=== PATIENT | female | born 1960 | race Hispanic/Latino ===

== ENCOUNTER 2023-04-15 16:51 | Inpatient (IN) | payer BC ==
[~2023-04-15 16:51] MED LIST: Iopamidol 300 61% 100 ML VIAL FS ONE
[2023-04-15] MEDS ORDERED: Ondansetron PF 4 MG/2 ML Vial ONE ×2 (17:51→19:22)
[2023-04-15 18:14] LABS: #Monocytes 0.7 10x3/uL (0.0-1.1); #Neutrophils 21.1 10x3/uL (1.5-8.4); %Basophils 0.2 % (0.0-2.0); %Lymphocytes 3.9 % (18.0-47.0); %Monocytes 3.2 % (0.0-10.0); Hematocrit 40.9 % (34.9-44.5); Hemoglobin 14.3 g/dL (12.0-15.5); Mean Corpuscular Hemoglobin 30.8 pg (27.0-33.0); Mean Platelet Volume 9.4 fl (7.4-10.4); Platelet Count 316 10x3/uL (150-450); RBC Distribution Width 11.8 % (11.5-14.5); Red Blood Cell (RBC) Count 4.65 10x6/uL (3.90-5.03)
[2023-04-15 18:28] LABS: ALT (SGPT) 14 U/L (8-55); AST (SGOT) 15 U/L (5-34); Albumin 3.7 g/dL (3.4-4.8); Alkaline Phosphatase 84 U/L (40-110); Anion Gap 18 mmol/L (10-20); BUN (Urea Nitrogen) 14 mg/dL (9.8-20.1); Bilirubin, Total 0.4 mg/dL (0.2-1.2); Calc. Creatinine Clearance 0 mL/min (70-130); Carbon Dioxide 21 mmol/L (23-31); Chloride 104 mmol/L (98-107); Estimated GFR 96; Globulin 2.7 g/dL (2.4-3.5); Glucose 107 mg/dL (80-115); Lipase 29 U/L (8-78); Potassium 3.3 mmol/L (3.5-5.1); Protein, Total 6.4 g/dL (5.8-8.1); Sodium 140 mmol/L (136-145)
[2023-04-15 18:29] LABS: SARS-CoV-2 NAA Rapid Test Not Detected (NotDetected)
[2023-04-15 18:30] LABS: Troponin I Less than 0.010 ng/mL (< 0.028)
[2023-04-15 19:20] LABS: Bilirubin 1+ (Negative); Blood, Urine Negative (Negative); Clarity Clear (Clear); Glucose, Urine (Dipstick) Normal (Negative); Ketone, Urine 150 mg/dL (Negative); Leukocyte 25 (Negative); Nitrite Negative (Negative); Protein, Urine (Dipstick) 100 mg/dl (Neg-Trace); Specific Gravity, Urine 1.015 (1.005-1.030)
[2023-04-15] MEDS ORDERED: cefTRIAXone (ROCEPHIN) 1 GM VIAL ONE (19:22)
[2023-04-15] MEDS ORDERED: Azithromycin 500 MG VIAL ONE (19:22)
[2023-04-15] MEDS ORDERED: fentaNYL 50 mcg/mL 1 mL Vial ONE (19:34)
[2023-04-15 19:39] LABS: Bacteria/HPF 1+ HPF (None Seen); CAUTI Indications for Culture Pelvic or flank pain; Mucous/LPF 1+ LPF (<2+); RBC/HPF 0-3 HPF (0-3); Squamous Epithelial 0-3 HPF (0-3)
[2023-04-15 19:41] LABS: Urine Culture Reflex No No
[2023-04-15] MEDS ORDERED: Zolpidem Tartrate 5 MG TAB PO PRN (19:45)
[2023-04-15] MEDS ORDERED: Calcium Carbonate 500 MG ChewTAB PO PRN (19:45)
[2023-04-15] MEDS ORDERED: Senokot S 8.6-50 MG TAB PO PRN (19:45)
[2023-04-15 20:44] VITALS: BMI 25.7
[2023-04-15] MEDS ORDERED: Famotidine/PF 20 mg/2ml Vial SLOW IVP SCH (21:00)
[2023-04-15] MEDS ORDERED: Potassium Chloride 20 MEQ TAB PO SCH (21:00)
[2023-04-15] MEDS: Benzonatate 100 MG CAP PO SCH (21:12)
[2023-04-15] MEDS: Acetaminophen 325 MG TAB PO PRN (21:12)
[2023-04-15] MEDS: Lactated Ringer's 1,000 ML IV SCH (21:12)
[2023-04-15 21:14] LABS: Legionella Urinary Ag Negative (Negative)
[2023-04-15] MEDS: Oseltamivir 75 MG CAP PO SCH (21:21)
[2023-04-16] MEDS: Acetaminophen 325 MG TAB PO PRN (00:48)
[2023-04-16 05:14] LABS: #Eosinphils 0.1 10x3/uL (0.0-0.5); #Monocytes 0.9 10x3/uL (0.0-1.1); #Neutrophils 12.5 10x3/uL (1.5-8.4); %Basophils 0.1 % (0.0-2.0); %Eosinophils 0.6 % (0.0-6.0); %Monocytes 5.5 % (0.0-10.0); %Neutrophils 80.4 % (40.0-75.0); Hematocrit 33.7 % (34.9-44.5); Hemoglobin 11.8 g/dL (12.0-15.5); Mean Corpuscular Hemoglobin 30.9 pg (27.0-33.0); Mean Corpuscular Volume 88.2 fl (81.6-98.3); Mean Platelet Volume 9.7 fl (7.4-10.4); Platelet Count 279 10x3/uL (150-450); RBC Distribution Width 11.9 % (11.5-14.5); Red Blood Cell (RBC) Count 3.82 10x6/uL (3.90-5.03); White Blood Cell (WBC) Count 15.6 10x3/uL (3.5-10.5)
[2023-04-16] MEDS ORDERED: Acetaminophen/Codeine 30-300mg Tablet PO PRN (05:18)
[2023-04-16 05:32] LABS: Anion Gap 13 mmol/L (10-20); BUN (Urea Nitrogen) 10 mg/dL (9.8-20.1); CK (CPK) 19 U/L (29-168); Calc. Creatinine Clearance 89 mL/min (70-130); Calcium 8.7 mg/dL (7.8-10.44); Carbon Dioxide 22 mmol/L (23-31); Chloride 108 mmol/L (98-107); Estimated GFR 99; Glucose 123 mg/dL (80-115); Magnesium 1.7 mg/dL (1.6-2.6); Potassium 3.4 mmol/L (3.5-5.1); Sodium 140 mmol/L (136-145)
[2023-04-16] MEDS: Lactated Ringer's 1,000 ML IV SCH ×2 (06:12→15:32)
[2023-04-16 06:34] LABS: Strep pneumo Urine Ag NEGATIVE (NEGATIVE)
[2023-04-16] MEDS: Valsartan 80 MG TAB PO SCH (08:28)
[2023-04-16] MEDS: Benzonatate 100 MG CAP PO SCH ×3 (08:28→22:05)
[2023-04-16] MEDS: Ondansetron PF 4 MG/2 ML Vial IVP PRN ×2 (08:28→15:26)
[2023-04-16] MEDS: Oseltamivir 75 MG CAP PO SCH ×2 (08:28→22:05)
[2023-04-16] MEDS: Guaifenesin DM 100-10/5 ML UDCUP PO PRN (15:25)
[2023-04-16] MEDS ORDERED: cefTRIAXone\\ROCEPHIN 2 GM in Sodium Chloride 0.9% 100 ML IVPB SCH (18:00)
[2023-04-16] MEDS ORDERED: Azithromycin 500 MG in Sodium Chloride 0.9% 250 ML 250 ML IVPB SCH (20:00)
[2023-04-17 04:45] LABS: #Eosinphils 0.3 10x3/uL (0.0-0.5); #Monocytes 0.9 10x3/uL (0.0-1.1); %Basophils 0.3 % (0.0-2.0); %Eosinophils 2.3 % (0.0-6.0); %Lymphocytes 19.7 % (18.0-47.0); %Monocytes 7.2 % (0.0-10.0); Hematocrit 35.4 % (34.9-44.5); Hemoglobin 12.2 g/dL (12.0-15.5); Mean Corpuscular HGB CONC 34.5 g/dL (32.0-36.0); Mean Corpuscular Hemoglobin 30.7 pg (27.0-33.0); Mean Corpuscular Volume 89.2 fl (81.6-98.3); Mean Platelet Volume 9.4 fl (7.4-10.4); Platelet Count 289 10x3/uL (150-450); RBC Distribution Width 11.9 % (11.5-14.5); Red Blood Cell (RBC) Count 3.97 10x6/uL (3.90-5.03); White Blood Cell (WBC) Count 12.9 10x3/uL (3.5-10.5)
[2023-04-17 04:49] LABS: Anion Gap 14 mmol/L (10-20); BUN (Urea Nitrogen) 10 mg/dL (9.8-20.1); Calc. Creatinine Clearance 92 mL/min (70-130); Calcium 8.6 mg/dL (7.8-10.44); Carbon Dioxide 21 mmol/L (23-31); Chloride 108 mmol/L (98-107); Estimated GFR 100; Glucose 90 mg/dL (80-115); Potassium 3.7 mmol/L (3.5-5.1); Sodium 139 mmol/L (136-145)
[2023-04-17] MEDS: Ondansetron PF 4 MG/2 ML Vial IVP PRN (05:20)
[2023-04-17] MEDS: Valsartan 80 MG TAB PO SCH (09:42)
[2023-04-17] MEDS: Oseltamivir 75 MG CAP PO SCH (09:42)
[2023-04-17] MEDS: Benzonatate 100 MG CAP PO SCH (09:42)
[2023-04-17] MEDS: Guaifenesin DM 100-10/5 ML UDCUP PO PRN (09:42)
[2023-04-17 13:05] VITALS: BP 135/74; TEMP 98.3
[2023-04-18 22:08] LABS: Mycoplasma pneumoniae IgG AB 237 U/mL (0-99); Mycoplasma pneumoniae IgM AB 777 U/mL (0-769)
== END 2023-04-17 13:21 | disposition home or self-care (01) | DRG 194 ==
LOC: CSHERS 16:51 → CSHTELE 20:33
PROVIDERS: ADMIT Student in an Organized Health Care Education/Training Program; ATTEND Internal Medicine
DX: J10.00 Influenza due to other identified influenza virus with unspecified type of pneumonia (principal); N39.0 Urinary tract infection, site not specified; J15.9 Unspecified bacterial pneumonia; I10 Essential (primary) hypertension; E87.6 Hypokalemia; E86.0 Dehydration; M19.90 Unspecified osteoarthritis, unspecified site; G89.29 Other chronic pain; Z88.8 Allergy status to other drugs, medicaments and biological substances; R09.02 Hypoxemia; Z11.52 Encounter for screening for COVID-19; Z90.49 Acquired absence of other specified parts of digestive tract; Z98.890 Other specified postprocedural states
CPT/HCPCS: 36415; 71046; 74177; 80048; 80053; 81001; 82550; 83605; 83690; 83735; 84145; 84484; 85025; 87040; 87081; 87086; 87430; 87449; 87899; 93005; 96365; 96368; 96375; 96376; J0456; J0696; J1650; J2405; J3010; J3490; J7050; J7120; Q9967; S0028